=== PATIENT | female | born 1970 | race Caucasian/White ===

== ENCOUNTER 2018-04-18 22:00 | Emergency (ER) | payer SELFPAY ==
[~2018-04-18] VITALS: Ht 157.5 cm; Wt 83.9 kg
[2018-04-18 22:50] VITALS: BP 124/80
--- NOTE | 2018-04-19 00:17 | NUR ---
PT AMBULATED TO BED 03.
--- NOTE | 2018-04-19 00:27 | NUR ---
PT BIB DAUGHTER IN LAW C/O HEADACHE X5 DAYS. PT STATES SHARP PAIN TO TEMPORAL LOBES, BLURRIED VISION WHEN PAIN GETS REALLY SHARP; PT STATES 9/10 AT THIS TIME. +NAUSEA. -VOMITING. HAND STRENGTH STRONG AND EQUAL BL. PERRLA. SMILE ASYMETRIC. DENIES FALL OR TRAUMA. SPEECH CLEAR. --SKIN WARM, DRY AND INTACT. AAOX4. LUNG SOUNDS CLEAR BL. BOWEL SOUNDS ACTIVE X4 QUAD. PT IN GOWN IN BED; BED IN LOWER LOCKED POSITION. ER MD MADE AWARE OF PT STATUS. PMH: DENIES RX: DENIES
--- NOTE | 2018-04-19 00:32 | NUR ---
CALL TO CT. PREG NEG PT READY FOR IMAGING. NO ANSWER.
--- NOTE | 2018-04-19 00:38 | NUR ---
CALL TO CT. PREG IS NEG AND PT IS READY FOR IMAGING. [place] STATED "OK, WILL BE THERE".
--- NOTE | 2018-04-19 00:44 | NUR ---
PT TAKEN TO CT VIA WHEELCHAIR BY TECH.
[2018-04-19] MEDS ORDERED: KETOROLAC 60 MG/2 ML VIAL IM ONE (00:55)
[2018-04-19 01:30] VITALS: BP 124/80
--- NOTE | 2018-04-19 01:30 | NUR ---
Patient discharged with v/s stable. Written and verbal after care instructions given and explained. Patient alert, oriented and verbalized understanding of instructions. Ambulatory with steady gait. All questions addressed prior to discharge. ID band removed. Patient advised to follow up with PMD. Rx of TRAMADOL AND PROMETHAZINE DM given. Patient educated on indication of medication including possible reaction and side effects. Opportunity to ask questions provided and answered.
== END 2018-04-19 01:31 | disposition home or self-care (01) ==
LOC: MED 22:00
DX: J06.9 Acute upper respiratory infection, unspecified (principal)
CPT/HCPCS: 70450; 81025; 96372; 99283; J1885